=== PATIENT | female | born 1970 | race Caucasian/White ===

== ENCOUNTER → 2016-04-05 | Outpatient (REF) | payer MEDICAID, OTHER ==
[2016-04-05 14:47] LABS: FOLATE > 24.0 NG/ML; VITAMIN B12 LEVEL 551 PG/ML
[2016-04-05 14:50] LABS: ALBUMIN 4.1 GM/DL (3.2-5.2); ALBUMIN/GLOBULIN RATIO 1.14 (1.00-1.93); ALKALINE PHOSPHATASE 63 U/L (45-117); ALT/SGPT 25 U/L (12-78); ANION GAP 13 MEQ/L (8-16); AST/SGOT 19 U/L (15-37); BILIRUBIN,TOTAL 0.3 MG/DL (0.2-1.0); BLOOD UREA NITROGEN 10 MG/DL (7-18); CALCIUM LEVEL 8.9 MG/DL (8.5-10.1); CARBON DIOXIDE LEVEL 23 MEQ/L (21-32); CHLORIDE LEVEL 104 MEQ/L (98-107); CREATININE FOR GFR 0.91 MG/DL (0.55-1.02); GLOMERULAR FILTRATION RATE > 60.0 (>58); GLUCOSE, FASTING 85 MG/DL (70-105); POTASSIUM SERUM 4.6 MEQ/L (3.5-5.1); SODIUM LEVEL 140 MEQ/L (136-145); TOTAL PROTEIN 7.7 GM/DL (6.4-8.2)
[2016-04-08 08:07] LABS: VITAMIN E LEVEL 9.7 mg/L (5.3-16.8)
== END | disposition home or self-care (01) ==
LOC: M LABNEURO 14:07
PROVIDERS: ATTEND Psychiatry & Neurology Neurology
DX: G62.9 Polyneuropathy, unspecified (principal)

== ENCOUNTER → 2016-05-14 | Outpatient (CLI) | payer OTHER ==
--- NOTE | 2016-05-14 11:44 | REP ---
MR LUMBAR SPINE WITHOUT CONTRAST: HISTORY: Back pain. COMPARISON: 01/13/2016 Decreased signal intensity on T2-weighted images is present in the L3-4 and L4-5 intervertebral discs. The discs are decreased in height. These findings are consistent with disc degeneration. There is no disc bulge or herniation at the L1-2 and L2-3 levels. The nerves exit the neural foramina without compression. A diffuse disc bulge is present at the L3-4 level. There is hypertrophy of the ligamenta flava and posterior articulating facets. These findings produce minimal central canal stenosis. The L3 nerves exit the neural foramina without compression. A diffuse disc bulge and small central disc extrusion are present at the L4-5 level. There is hypertrophy of the ligamenta flava and posterior articulating facets. These findings produce moderate central canal stenosis. The L4 nerves exit the neural foramina without compression. A diffuse disc bulge is present at the L5-S1 level. This abuts the thecal sac and S1 nerves. There is hypertrophy of the posterior articulating facets. The L4 nerves exit the neural foramina without compression. The conus medullaris is normal in appearance terminating at the level of the L1-2 intervertebral disc. There is fatty infiltration of the filum terminale. Increased signal intensity on T2-weighted images is present in the endplates of the L4 and L5 vertebral bodies. This represents degenerative change. IMPRESSION: 1. Minimal central canal stenosis at the L3-4 level secondary to disc bulge, ligamentous and facet hypertrophy. 2. Moderate central canal stenosis at the L4-5 level secondary to disc bulge, disc extrusion, ligamentous and facet hypertrophy. There is no significant change compared to the previous study. 3. Diffuse disc bulge at the L5 S1 level. This abuts the thecal sac and S1 nerves. Signed by Geraldo Fuchs MD 05/14/2016 11:49 A
== END ==
LOC: M RAD 10:20
PROVIDERS: ATTEND Orthopaedic Surgery
DX: M54.5 Low back pain (principal)

== ENCOUNTER 2016-06-04 17:03 | Emergency (ER) | payer OTHER ==
[~2016-06-04] VITALS: Ht 160 cm; Wt 84.4 kg
[2016-06-04] MEDS ORDERED: AMBI10TA PO (17:20)
[2016-06-04] MEDS ORDERED: HYDR-3716 PO (17:20)
[2016-06-04] MEDS ORDERED: PAXI25TA13 PO (17:20)
[2016-06-04] MEDS ORDERED: LITH300C PO (17:20)
[2016-06-04] MEDS ORDERED: ISOVUE-370 76% 100ML VIAL (Q9967) As Ordered ONE (18:09)
--- NOTE | 2016-06-04 19:26 | REP ---
CT LUMBAR SPINE WITH CONTRAST: REASON: Rule out abscess. Patient has some pain. PRIORS: There are no priors. The examination was performed after intravenous contrast administration. Contrast utilized 100 mL Isovue-370. Mild degenerative facet joint changes are seen at L4-5 and L5-S1. Discogenic changes are seen at L4-5 with air density in the disc space consistent with vacuum phenomena from degenerative disc disease. There is L4-5 disc space narrowing. Mild anterior lipping is seen at ever level. Vertebral body height and alignment is within normal limits. Soft tissue technique throughout the examination shows fatty infiltration of the soft tissues overlying the erector spinae and multifidi musculature on the left to a greater degree than on the right and there is some air density within the soft tissues centrally and to the midline to the greatest within the subcutaneous fat. This is seen with fatty infiltration of the tissues. Midline posterior to the spinous process of L4 there is a 3.6 x 2.3 x 4.4 cm sized relatively well demarcated area of increased soft density with a small dot of air within it. This does not have well demarcated enhancing margins. IMPRESSION: There is fatty infiltration and abnormal air-density in the soft tissue as described above seen in conjunction with a focal area of increased density which may represent a developing abscess. This needs to be correlated clinically with appropriate followup. Signed by Hayden Vernon DO 06/04/2016 07:34 P
[2016-06-04 22:50] VITALS: BP 140/92
[2016-06-04] MEDS ORDERED: PERCOCET 5MG/325MG TAB PO ONE (23:00)
== END 2016-06-04 23:01 | disposition short-term general hospital (02) ==
LOC: M ED 18:45
DX: J95.812 Postprocedural air leak (principal)
CPT/HCPCS: 72132; 99282; Q9967

== ENCOUNTER → 2016-06-24 | Outpatient (CLI) | payer OTHER ==
[~2016-06-24] MED LIST: AMBI10TA PO; HYDR-3716 PO; LITH300C PO; PAXI25TA13 PO
[2016-06-24 17:44] LABS: BASO % 0.6 % (0.0-1.0); EOS # 0.2 K/mm3 (0.0-0.50); EOS % 2.8 % (0.0-3.0); LARGE UNSTAINED CELL # 0.1 K/mm3 (0.0-0.4); LARGE UNSTAINED CELL % 1.1 % (0.0-4.0); LYMPH # 1.8 K/mm3 (1.5-4.5); LYMPH % 20.1 % (24.0-44.0); MEAN CORPUSCULAR HEMOGLOBIN 31.2 pg (27.0-33.0); MEAN CORPUSCULAR HGB CONC 33.4 g/dl (32.0-36.5); MEAN CORPUSCULAR VOLUME 93.4 fl (80.0-96.0); MONO # 0.5 K/mm3 (0.0-0.8); MONO % 5.7 % (0.0-5.0); NEUTROPHILS # 5.9 K/mm3 (1.8-7.7); NEUTROPHILS % 69.7 % (36.0-66.0); PLATELET COUNT, AUTOMATED 341 k/mm3 (150-450); RED CELL DISTRIBUTION WIDTH 13.5 % (11.5-14.5); WHITE BLOOD COUNT 8.4 K/mm3 (4.0-10.0)
[2016-06-24 18:11] LABS: ERYTHROCYTE SEDIMENTATION RATE 6 mm/hr (0-20)
== END ==
LOC: M LAB 16:58
PROVIDERS: ATTEND Physician Assistant Surgical
DX: M54.5 Low back pain (principal)

== ENCOUNTER → 2016-07-16 | Outpatient (REF) | payer OTHER ==
[2016-07-16 16:20] LABS: BASO % 0.5 % (0.0-1.0); EOS # 0.2 K/mm3 (0.0-0.50); EOS % 1.7 % (0.0-3.0); LARGE UNSTAINED CELL # 0.1 K/mm3 (0.0-0.4); LARGE UNSTAINED CELL % 0.9 % (0.0-4.0); LYMPH # 2.2 K/mm3 (1.5-4.5); LYMPH % 20.3 % (24.0-44.0); MEAN CORPUSCULAR HEMOGLOBIN 31.4 pg (27.0-33.0); MEAN CORPUSCULAR HGB CONC 33.4 g/dl (32.0-36.5); MEAN CORPUSCULAR VOLUME 94.1 fl (80.0-96.0); MONO # 0.6 K/mm3 (0.0-0.8); MONO % 6.3 % (0.0-5.0); NEUTROPHILS # 7.2 K/mm3 (1.8-7.7); NEUTROPHILS % 70.3 % (36.0-66.0); PLATELET COUNT, AUTOMATED 321 k/mm3 (150-450); RED CELL DISTRIBUTION WIDTH 12.9 % (11.5-14.5); WHITE BLOOD COUNT 10.2 K/mm3 (4.0-10.0)
[2016-07-16 16:41] LABS: ALBUMIN 3.8 GM/DL (3.2-5.2); ALBUMIN/GLOBULIN RATIO 1.09 (1.00-1.93); ALKALINE PHOSPHATASE 66 U/L (45-117); ALT/SGPT 29 U/L (12-78); ANION GAP 7 MEQ/L (8-16); AST/SGOT 13 U/L (15-37); BILIRUBIN,TOTAL 0.3 MG/DL (0.2-1.0); BLOOD UREA NITROGEN 13 MG/DL (7-18); CALCIUM LEVEL 8.8 MG/DL (8.5-10.1); CARBON DIOXIDE LEVEL 24 MEQ/L (21-32); CHLORIDE LEVEL 107 MEQ/L (98-107); CREATININE FOR GFR 0.91 MG/DL (0.55-1.02); GLOMERULAR FILTRATION RATE > 60.0 (>58); GLUCOSE, FASTING 98 MG/DL (70-105); POTASSIUM SERUM 4.3 MEQ/L (3.5-5.1); SODIUM LEVEL 138 MEQ/L (136-145); TOTAL PROTEIN 7.3 GM/DL (6.4-8.2)
[2016-07-16 17:41] LABS: ERYTHROCYTE SEDIMENTATION RATE 8 mm/hr (0-20)
== END ==
LOC: M SFHCPLAZ 15:45
PROVIDERS: ATTEND Family Medicine
DX: R19.7 Diarrhea, unspecified (principal)

== ENCOUNTER → 2016-07-26 | Outpatient (REF) | payer OTHER ==
[2016-07-26 15:24] LABS: CONTROL LINE HPYORI INT CTR LINE PRESENT
== END ==
LOC: M SFHCPLAZ 08:33
PROVIDERS: ATTEND Family Medicine
DX: R10.12 Left upper quadrant pain (principal)

== ENCOUNTER → 2016-09-02 | Outpatient (REF) | payer OTHER ==
[~2016-09-02] MED LIST changes: +PANT40TA2 PO; +ZOFR4TAB3 PO
== END ==
LOC: M SFHCWAGY 11:48
PROVIDERS: ATTEND Nurse Practitioner Women's Health
DX: Z12.4 Encounter for screening for malignant neoplasm of cervix (principal)

== ENCOUNTER → 2016-09-24 | Outpatient (CLI) | payer OTHER ==
[~2016-09-24] MED LIST changes: +GASTROGRAFIN SOLUTION 30ML (Q9963) As Ordered ONE; +ISOVUE-370 76% 100ML VIAL (Q9967) As Ordered ONE
--- NOTE | 2016-09-24 17:46 | REP ---
CT abdomen and pelvis with IV contrast: 09/24/2016. Clinical history: Left lower quadrant abdominal tenderness. Evaluate for acute finding or abscess. Technique: Oral Gastrografin mixture, 10 ml in 290 ml of flavored water for two doses per our bowel contrast protocol. Bolus of 100 ml of Isovue-370 given. Scanning through the abdomen and pelvis and then both coronal and sagittal reconstructions provided. CT abdomen: Lung bases are clear. Heart not enlarged. No pericardial thickening or effusion. No definite hiatal hernia. Liver, spleen, gallbladder, pancreas, adrenal glands and kidneys were grossly unremarkable. No calcified gallstones, biliary dilatation, ascites or focal lesions. No hydronephrosis, renal, ureteral or bladder stone. The aorta is without aneurysm and no periaortic or other retroperitoneal pathologic sized lymphadenopathy. Abdominal portion of the colon shows oral contrast reaching the distal transverse colon, but no sign of colitis or diverticulitis. Appendix is seen, is retrocecal, extending superiorly from the cecal tip but ending well below the right lobe of the liver. No appendicolith or inflammatory change. Visualized small bowel loops in the upper abdomen were unremarkable. Bone window review of all CT slices shows no perforation or free air, and no abscess. Bone windows show vacuum phenomena at L4-L5 with discogenic sclerosis. No compression deformity or destructive lesion. Lower thoracic vertebral levels are unremarkable. Visualized ribs are intact. CT pelvis: Lumbosacral junction shows sacralization transverse process of L5 on the left as anatomic variation. SI joints, sacrum, iliac bones, acetabuli, hips and symphysis pubis were all grossly intact. There are a few subchondral cysts in the junction of the femoral head and neck on the left side only, representing synovial herniation pits, a benign finding. Distal left colon, sigmoid and rectum show no sign of colitis or diverticulitis. There is no pericolonic inflammatory changes. I see no ascites or adenopathy in the pelvis. The bladder is nearly completely empty. Wall thickness, therefore, difficult to electric meter setter. I see no mass or stone. Uterus absent and the vaginal cuff intact. Pelvic phleboliths are present, but no adnexal mass. No ventral or inguinal hernia nor pathologic sized inguinal adenopathy. Intrinsic and extrinsic pelvic hip, buttock and proximal thigh musculature as well as lower abdominal musculature all unremarkable. Impression: 1. Status post hysterectomy with no pelvic mass, adenopathy, ascites, perforation or free air. There is no abscess. There is no colitis, diverticulitis or other acute finding. Small bowel loops intact. 2. Retrocecal appendix which is normal. The cecum, right colon through the transverse and left colon all unremarkable. Small bowel loops intact. 3. The upper abdominal organs, gallbladder and stomach were all intact. Signed by Earle Ndiaye MD 09/24/2016 10:25 P
== END ==
LOC: M RAD 13:45
PROVIDERS: ATTEND Internal Medicine Gastroenterology
DX: R10.814 Left lower quadrant abdominal tenderness (principal)

== ENCOUNTER 2016-09-30 06:46 | Outpatient (CLI) | payer OTHER ==
[~2016-09-30] VITALS: Ht 157.5 cm; Wt 82.6 kg
[~2016-09-30 06:46] MED LIST changes: -GASTROGRAFIN SOLUTION 30ML (Q9963) As Ordered ONE; -ISOVUE-370 76% 100ML VIAL (Q9967) As Ordered ONE; -ZOFR4TAB3 PO
[2016-09-30] MEDS ORDERED: PROPOFOL 200 MG/20 ML VIAL As Ordered ONE (07:19)
[2016-09-30] MEDS ORDERED: NS 1,000 ML IV SCH (07:45)
--- NOTE | 2016-09-30 08:54 | ROOR ---
Patient Name: Ceci Brewster Procedure Date: 09/30/2016 8:34 AM Date of : 1970 Age: 46 Room: [facility] Gender: Female Note Status: Finalized Procedure: Colonoscopy Indications: Chronic diarrhea Providers: Suresh Koenig MD Referring MD: Geraldo Donaldson DO Requesting Provider: Medicines: Monitored Anesthesia Care Complications: No immediate complications. Procedure: Pre-Anesthesia Assessment: - Prior to the procedure, a History and Physical was performed, and patient medications and allergies were reviewed. The patient is competent. The risks and benefits of the procedure and the sedation options and risks were discussed with the patient. All questions were answered and informed consent was obtained. Patient identification and proposed procedure were verified by the physician, the nurse and the railroad emergency services manager in the procedure room. Mental Status Examination: alert and oriented. Airway Examination: normal oropharyngeal airway and neck mobility. Respiratory Examination: clear to auscultation. CV Examination: normal. Prophylactic Antibiotics: The patient does not require prophylactic antibiotics. Prior Anticoagulants: The patient has taken no previous anticoagulant or antiplatelet agents. ASA Grade Assessment: II - A patient with mild systemic disease. After reviewing the risks and benefits, the patient was deemed in satisfactory condition to undergo the procedure. The anesthesia plan was to use monitored anesthesia care (MAC). Immediately prior to administration of medications, the patient was re-assessed for adequacy to receive sedatives. The heart rate, respiratory rate, oxygen saturations, blood pressure, adequacy of pulmonary ventilation, and response to care were monitored throughout the procedure. The physical status of the patient was re-assessed after the procedure. The Colonoscope was introduced through the anus and advanced to the terminal ileum, with identification of the appendiceal orifice and IC valve. The colonoscopy was performed without difficulty. The patient tolerated the procedure well. The quality of the bowel preparation was good. The terminal ileum, ileocecal valve, appendiceal orifice, and rectum were photographed. Scope insertion time was 6 minutes. Scope withdrawal time was 20 minutes. The total duration of the procedure was 26 minutes. Findings: The perianal and digital rectal examinations were normal. A 3 mm polyp was found in the ascending colon. The polyp was sessile. The polyp was removed with a cold biopsy forceps. Resection and retrieval were complete. Verification of patient identification for the specimen was done by the physician, nurse and calibration technician using the patient's name, date and medical record number. Estimated blood loss was minimal. A 3 mm polyp was found in the transverse colon. The polyp was sessile. The polyp was removed with a cold biopsy forceps. Resection and retrieval were complete. A 3 mm polyp was found in the sigmoid colon. The polyp was sessile. The polyp was removed with a cold biopsy forceps. Resection and retrieval were complete. Anal papilla(e) were hypertrophied. Biopsies were taken with a cold forceps for histology. No additional abnormalities were found on retroflexion. Normal mucosa was found in the entire colon. Biopsies for histology were taken with a cold forceps from the ascending colon, transverse colon, descending colon, sigmoid colon and rectum for evaluation of microscopic colitis. Impression: - One 3 mm polyp in the ascending colon, removed with a cold biopsy forceps. Resected and retrieved. - One 3 mm polyp in the transverse colon, removed with a cold biopsy forceps. Resected and retrieved. - One 3 mm polyp in the sigmoid colon, removed with a cold biopsy forceps. Resected and retrieved. - Anal papilla(e) were hypertrophied. Biopsied. - Normal mucosa in the entire examined colon. Biopsied. Recommendation: - Patient has a contact number available for emergencies. The signs and symptoms of potential delayed complications were discussed with the patient. Return to normal activities tomorrow. Written discharge instructions were provided to the patient. - Resume previous diet. - Continue present medications. - Await pathology results. - Repeat colonoscopy in 3 - 5 years for surveillance based on pathology results. - Return to GI clinic as previously scheduled. Suresh Koenig MD Suresh Koenig MD 09/30/2016 8:54:48 AM This report has been signed electronically. Number of Addenda: 0 Note Initiated On: 09/30/2016 8:34 AM Estimated Blood Loss: Estimated blood loss was minimal.
[2016-09-30 09:10] VITALS: BP 109/76
== END 2016-09-30 09:18 | disposition home or self-care (01) ==
LOC: M OPP 06:46
PROVIDERS: ATTEND Internal Medicine Gastroenterology
DX: K63.5 Polyp of colon (principal); D12.3 Benign neoplasm of transverse colon; K62.89 Other specified diseases of anus and rectum; K21.9 Gastro-esophageal reflux disease without esophagitis; G89.29 Other chronic pain; M54.9 Dorsalgia, unspecified; F41.9 Anxiety disorder, unspecified; F33.9 Major depressive disorder, recurrent, unspecified; F17.210 Nicotine dependence, cigarettes, uncomplicated; Z79.899 Other long term (current) drug therapy

== ENCOUNTER 2016-10-02 08:57 | Emergency (ER) | payer OTHER ==
[~2016-10-02] VITALS: Ht 160 cm; Wt 85.2 kg
[2016-10-02] MEDS ORDERED: ZOFR4TAB3 PO (09:10)
[2016-10-02] MEDS ORDERED: PROMETHAZINE INJ 25 MG/ML VIAL (J2550) IM ONE (09:45)
[2016-10-02 10:23] LABS: BASO % 0.7 % (0.0-1.0); EOS # 0.1 K/mm3 (0.0-0.50); EOS % 1.9 % (0.0-3.0); LARGE UNSTAINED CELL # 0.1 K/mm3 (0.0-0.4); LARGE UNSTAINED CELL % 0.9 % (0.0-4.0); LYMPH # 1.7 K/mm3 (1.5-4.5); LYMPH % 22.2 % (24.0-44.0); MEAN CORPUSCULAR HEMOGLOBIN 30.4 pg (27.0-33.0); MEAN CORPUSCULAR HGB CONC 32.5 g/dl (32.0-36.5); MEAN CORPUSCULAR VOLUME 93.5 fl (80.0-96.0); MONO # 0.3 K/mm3 (0.0-0.8); MONO % 3.8 % (0.0-5.0); NEUTROPHILS # 5.1 K/mm3 (1.8-7.7); NEUTROPHILS % 70.6 % (36.0-66.0); PLATELET COUNT, AUTOMATED 315 k/mm3 (150-450); RED CELL DISTRIBUTION WIDTH 12.5 % (11.5-14.5); WHITE BLOOD COUNT 7.2 K/mm3 (4.0-10.0)
[2016-10-02 10:36] LABS: ALBUMIN/GLOBULIN RATIO 1.21 (1.00-1.93); ALKALINE PHOSPHATASE 59 U/L (45-117); ALT/SGPT 24 U/L (12-78); ANION GAP 8 MEQ/L (8-16); AST/SGOT 21 U/L (15-37); BILIRUBIN,DIRECT 0.1 MG/DL (0.0-0.2); BILIRUBIN,TOTAL 0.5 MG/DL (0.2-1.0); BLOOD UREA NITROGEN 6 MG/DL (7-18); CARBON DIOXIDE LEVEL 23 MEQ/L (21-32); CHLORIDE LEVEL 111 MEQ/L (98-107); CREATININE FOR GFR 0.87 MG/DL (0.55-1.02); GLOMERULAR FILTRATION RATE > 60.0 (>58); GLUCOSE, FASTING 89 MG/DL (70-105); POTASSIUM SERUM 4.4 MEQ/L (3.5-5.1); SODIUM LEVEL 142 MEQ/L (136-145); TOTAL PROTEIN 7.3 GM/DL (6.4-8.2)
[2016-10-02 10:39] LABS: LITHIUM LEVEL 0.53 MEQ/L (0.60-1.20)
[2016-10-02 10:50] LABS: ERYTHROCYTE SEDIMENTATION RATE 5 mm/hr (0-20)
[2016-10-02 11:26] VITALS: BP 125/90
== END 2016-10-02 11:34 | disposition home or self-care (01) ==
LOC: M ED 08:57
DX: R51 Headache (principal); G89.29 Other chronic pain; M54.9 Dorsalgia, unspecified; R11.0 Nausea; Z72.0 Tobacco use

== ENCOUNTER → 2016-10-27 | Outpatient (REF) | payer OTHER ==
[~2016-10-27] MED LIST changes: +ZOFR4TAB3 PO
[2016-10-27 14:07] LABS: INR 0.84
== END ==
LOC: M LABDRAW1 10:37
PROVIDERS: ATTEND Physical Medicine & Rehabilitation
DX: Z01.812 Encounter for preprocedural laboratory examination (principal); Z79.899 Other long term (current) drug therapy

== ENCOUNTER 2016-11-22 10:00 | Outpatient (CLI) | payer OTHER ==
[~2016-11-22] VITALS: Ht 160 cm; Wt 84.4 kg
[2016-11-22] MEDS ORDERED: NS 1,000 ML IV ONE (10:15)
[2016-11-22] MEDS ORDERED: LIDOCAINE 2% INJ 100 MG/5 ML SDV (FOR ANES.) As Ordered ONE (11:55)
[2016-11-22] MEDS ORDERED: PROPOFOL 200 MG/20 ML VIAL As Ordered ONE ×2 (11:56→12:11)
--- NOTE | 2016-11-22 12:12 | ROOR ---
Patient Name: Ceci Brewster Procedure Date: 11/22/2016 11:47 AM Date of : 1970 Age: 46 Room: [facility] Gender: Female Note Status: Finalized Procedure: Upper GI endoscopy Indications: Epigastric abdominal pain, Suspected celiac disease Providers: Suresh Koenig MD Referring MD: Geraldo Donaldson DO Requesting Provider: Medicines: Monitored Anesthesia Care Complications: No immediate complications. Procedure: Pre-Anesthesia Assessment: - Prior to the procedure, a History and Physical was performed, and patient medications and allergies were reviewed. The patient is competent. The risks and benefits of the procedure and the sedation options and risks were discussed with the patient. All questions were answered and informed consent was obtained. Patient identification and proposed procedure were verified by the physician, the nurse and the special systems technician in the procedure room. Mental Status Examination: alert and oriented. Airway Examination: normal oropharyngeal airway and neck mobility. Respiratory Examination: clear to auscultation. CV Examination: normal. Prophylactic Antibiotics: The patient does not require prophylactic antibiotics. Prior Anticoagulants: The patient has taken no previous anticoagulant or antiplatelet agents. ASA Grade Assessment: II - A patient with mild systemic disease. After reviewing the risks and benefits, the patient was deemed in satisfactory condition to undergo the procedure. The anesthesia plan was to use monitored anesthesia care (MAC). Immediately prior to administration of medications, the patient was re-assessed for adequacy to receive sedatives. The heart rate, respiratory rate, oxygen saturations, blood pressure, adequacy of pulmonary ventilation, and response to care were monitored throughout the procedure. The physical status of the patient was re-assessed after the procedure. The Endoscope was introduced through the mouth, and advanced to the second part of duodenum. The upper GI endoscopy was accomplished without difficulty. The patient tolerated the procedure well. Findings: A small hiatal hernia was present. LA Grade A (one or more mucosal breaks less than 5 mm, not extending between tops of 2 mucosal folds) esophagitis with no bleeding was found at the gastroesophageal junction. Biopsies were taken with a cold forceps for histology. Verification of patient identification for the specimen was done by the physician and nurse using the patient's name, date and medical record number. Estimated blood loss was minimal. Localized moderately erythematous mucosa without bleeding was found in the gastric antrum and in the prepyloric region of the stomach. Biopsies were taken with a cold forceps for Helicobacter pylori testing. The duodenal bulb and second portion of the duodenum were normal. Biopsies for histology were taken with a cold forceps for evaluation of celiac disease. Impression: - Small hiatal hernia. - LA Grade A reflux esophagitis. Biopsied. - Erythematous mucosa in the antrum and prepyloric region of the stomach. Biopsied. - Normal duodenal bulb and second portion of the duodenum. Biopsied. Recommendation: - Patient has a contact number available for emergencies. The signs and symptoms of potential delayed complications were discussed with the patient. Return to normal activities tomorrow. Written discharge instructions were provided to the patient. - Resume previous diet. - Continue present medications. - Await pathology results. - Return to GI clinic as previously scheduled on 12/02/2016 at 11:15 AM. - Return to primary care physician. Suresh Koenig MD Suresh Koenig MD 11/22/2016 12:11:57 PM This report has been signed electronically. Number of Addenda: 0 Note Initiated On: 11/22/2016 11:47 AM Estimated Blood Loss: Estimated blood loss was minimal.
[2016-11-22 12:20] VITALS: BP 106/75
== END 2016-11-22 12:33 | disposition home or self-care (01) ==
LOC: M OPP 10:00
PROVIDERS: ATTEND Internal Medicine Gastroenterology
DX: R10.13 Epigastric pain (principal); K44.9 Diaphragmatic hernia without obstruction or gangrene; K21.0 Gastro-esophageal reflux disease with esophagitis; K31.89 Other diseases of stomach and duodenum; K59.00 Constipation, unspecified; R12 Heartburn; R14.0 Abdominal distension (gaseous); F41.9 Anxiety disorder, unspecified; F32.9 Major depressive disorder, single episode, unspecified; G47.8 Other sleep disorders; M51.9 Unspecified thoracic, thoracolumbar and lumbosacral intervertebral disc disorder; G97.0 Cerebrospinal fluid leak from spinal puncture; Z87.891 Personal history of nicotine dependence; Z79.899 Other long term (current) drug therapy; Z80.9 Family history of malignant neoplasm, unspecified

== ENCOUNTER → 2017-02-22 | Outpatient (CLI) | payer OTHER ==
[2017-02-22 15:02] LABS: APPEARANCE, URINE CLEAR (CLEAR); BACTERIA, URINE AUTO 1+ (NEGATIVE); BILIRUBIN, URINE AUTO NEGATIVE (NEGATIVE); BLOOD, URINE BLOOD 1+ (NEGATIVE); COLOR, URINE YELLOW (YELLOW); GLUCOSE, URINE (UA) AUTO NEGATIVE (NEGATIVE); KETONE, URINE AUTO NEGATIVE (NEGATIVE); LEUKOCYTE ESTERASE, URINE AUTO NEGATIVE (NEGATIVE); MUCUS, URINE SMALL (NEGATIVE); NITRITE, URINE AUTO NEGATIVE (NEGATIVE); PROTEIN, URINE AUTO NEGATIVE (NEGATIVE); RBC, URINE AUTO 3 /HPF (0-3); SPECIFIC GRAVITY URINE AUTO 1.014 (1.002-1.035); SQUAMOUS EPITHELIAL CELL UR AU 1 /HPF (0-6); UROBILINOGEN, URINE AUTO 0.2 mg/dL (0.0-2.0); WBC, URINE AUTO 1 /HPF (0-3)
[2017-02-22 15:13] LABS: HEMATOCRIT 40.8 % (36.0-47.0); HEMOGLOBIN 13.3 g/dl (12.0-16.0); MEAN CORPUSCULAR HEMOGLOBIN 29.8 pg (27.0-33.0); MEAN CORPUSCULAR HGB CONC 32.6 g/dl (32.0-36.5); MEAN CORPUSCULAR VOLUME 91.5 fl (80.0-96.0); PLATELET COUNT, AUTOMATED 277 10^3/uL (150-450); RED BLOOD COUNT 4.46 10^6/uL (4.00-5.40); RED CELL DISTRIBUTION WIDTH 12.9 % (11.5-14.5); WHITE BLOOD COUNT 6.5 10^3/uL (4.0-10.0)
[2017-02-22 15:24] LABS: ALBUMIN 3.9 GM/DL (3.2-5.2); ALKALINE PHOSPHATASE 58 U/L (45-117); ALT/SGPT 20 U/L (12-78); ANION GAP 6 MEQ/L (8-16); AST/SGOT 16 U/L (7-37); BILIRUBIN,TOTAL 0.2 MG/DL (0.2-1.0); BLOOD UREA NITROGEN 10 MG/DL (7-18); CALCIUM LEVEL 8.6 MG/DL (8.5-10.1); CARBON DIOXIDE LEVEL 30 MEQ/L (21-32); CHLORIDE LEVEL 108 MEQ/L (98-107); CREATININE FOR GFR 0.82 MG/DL (0.55-1.02); GLOMERULAR FILTRATION RATE > 60.0 (>58); GLUCOSE, FASTING 81 MG/DL (70-105); POTASSIUM SERUM 4.6 MEQ/L (3.5-5.1); SODIUM LEVEL 144 MEQ/L (136-145); TOTAL PROTEIN 6.9 GM/DL (6.4-8.2)
[2017-02-22 15:46] LABS: LITHIUM LEVEL 0.32 MEQ/L (0.60-1.20)
== END ==
LOC: M LAB 14:03
DX: Z51.81 Encounter for therapeutic drug level monitoring (principal); Z79.899 Other long term (current) drug therapy
CPT/HCPCS: 80178

== ENCOUNTER → 2017-09-15 | Outpatient (CLI) | payer MEDICARE, OTHER | LOC: M WHC 14:46 | DX: Z01.419 Encounter for gynecological examination (general) (routine) without abnormal findings (principal); Z12.31 Encounter for screening mammogram for malignant neoplasm of breast (principal); Z92.89 Personal history of other medical treatment | CPT/HCPCS: 77067 ==

== ENCOUNTER → 2017-10-04 | Outpatient (REF) | payer MEDICARE, OTHER ==
[2017-10-04 11:40] LABS: PLATELET COUNT, AUTOMATED 265 10^3/uL (150-450)
[2017-10-04 11:53] LABS: INR 0.95; PROTHROMBIN TIME 12.8 SECONDS (12.1-14.4)
[2017-10-04 11:54] LABS: PARTIAL THROMBOPLASTIN TIME 26.8 SECONDS (25.4-37.6)
[2017-10-04 12:03] LABS: COLLAGEN EPINEPHRINE 97 SECONDS (74-162)
== END ==
LOC: M LAB REF 11:31
DX: Z01.818 Encounter for other preprocedural examination (principal); M51.26 Other intervertebral disc displacement, lumbar region; Z79.899 Other long term (current) drug therapy
CPT/HCPCS: 85049

== ENCOUNTER → 2018-05-12 | Outpatient (CLI) | payer OTHER ==
[~2018-05-12] MED LIST changes: +ENDO7.5T11 PO; +IBUP80TA PO; +ISOVUE-M 300 61% 15ML VIAL (Q9967) As Ordered ONE; +LIDOCAINE 1% MDV 20ML VIAL As Ordered ONE; +ONDA8TAB8 PO; +ONDANSETRON 4 MG ORAL DISINTEGRATING TAB (Q0162 PER 1MG) As Ordered ONE; -PANT40TA2 PO; +PANT40TA3 PO; +ZOFR4TAB14 PO; -ZOFR4TAB3 PO
--- NOTE | 2018-05-12 11:11 | REP ---
CT LUMBAR SPINE WITHOUT CONTRAST: HISTORY: Arachnoiditis. COMPARISON: MR 09/14/2017. CT of the lumbar spine was performed status post myelography. There is no disc bulge or herniation at the L1-2 and L2-3 levels. The nerves exit the neural foramina without compression. A diffuse disc bulge is present at the L3-4 level. There is hypertrophy of the ligamenta flava and posterior articulating facets. These findings produce minimal central canal stenosis. The L3 nerves exit the neural foramina without compression. A diffuse disc bulge with associated osteophyte formation is present at the L4-5 level. There is minimal compression of the thecal sac. There is hypertrophy of the posterior articulating facets. There is compression of the L4 nerves in the neural foramina and right L4 nerve in the right L4 lateral recess. A right laminectomy defect is present. A diffuse disc bulge is present at the L5-S1 level. This abuts the thecal sac. There is hypertrophy of the posterior articulating facets. The L5 nerves exit the neural foramina without compression. There is partial sacralization of the L5 vertebral body. The conus medullaris is normal in appearance terminating at the level of the L1-2 intervertebral disc. There is clumping of several nerves of the cauda equina at the L2-3 level consistent with arachnoiditis. The L3-4 and L4-5 intervertebral discs are decreased in height. Vacuum phenomenon is present at the L4-5 level. This represents ____ disc degeneration. There is sclerosis of the endplates of the L4 and L5 vertebral bodies. IMPRESSION: 1. Minimal central canal stenosis at the L3-4 level secondary to disc bulge, ligamentous and facet hypertrophy. 2. Diffuse disc bulge with associated osteophyte formation at the L4-5 level with minimal thecal sac compression. There is compression of the L4 nerves in the neural foramina and right L4 nerve in the right L4 lateral recess. The L4 nerve compression is a new finding. 3. Diffuse disc bulge at the L5-S1 level. This abuts the thecal sac. 4. 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 Electronically Signed by Geraldo Fuchs MD 05/12/2018 11:21 A
--- NOTE | 2018-05-12 16:38 | REP ---
LUMBAR MYELOGRAM The procedure was performed under the personal supervision of Dr. Huitron. The images were reviewed with Dr. Huitron. The risks and benefits of the procedure were explained to the patient and informed consent was obtained. The L3-4 interspace was localized using fluoroscopic guidance. The skin was prepped and draped in a sterile fashion. 1% lidocaine was used as a local anesthetic. Using fluoroscopic guidance a 22-gauge spinal needle was inserted and advanced into the thecal sac. 10 ml of Isovue -M 300 was injected. Images obtained after injection demonstrate degenerative narrowing at the L4-5 and L3-4 discs. There is minimal indentation of the ventral margin of the thecal sac on lateral projection and L3-4. There is evidence of facet hypertrophy at L4-5 bilaterally. Otherwise negative exam. The patient was taken to CT scan for postprocedural imaging. The patient tolerated the procedure well and there were no immediate complications. After the appropriate amount of monitored convalescence the patient was discharged from the department. 0.4 minutes of fluoroscopy time was utilized for this procedure. Reviewed by MANNIE Hood 05/12/2018 03:32 P Electronically Signed by Paul Huitron MD 05/12/2018 04:28 P
== END ==
LOC: M RADPRO 08:16
PROVIDERS: ATTEND Physical Medicine & Rehabilitation
DX: M51.37 Other intervertebral disc degeneration, lumbosacral region (principal); M47.817 Spondylosis without myelopathy or radiculopathy, lumbosacral region
CPT/HCPCS: 62304; 72131; Q0162; Q9967

== ENCOUNTER 2018-05-13 12:18 | Emergency (ER) | payer OTHER ==
[~2018-05-13] VITALS: Ht 157.5 cm; Wt 78.7 kg
[~2018-05-13 12:18] MED LIST changes: -ENDO7.5T11 PO; -IBUP80TA PO; -ISOVUE-M 300 61% 15ML VIAL (Q9967) As Ordered ONE; -LIDOCAINE 1% MDV 20ML VIAL As Ordered ONE; -ONDA8TAB8 PO; -ONDANSETRON 4 MG ORAL DISINTEGRATING TAB (Q0162 PER 1MG) As Ordered ONE
[2018-05-13] MEDS ORDERED: LIDOCAINE 5% (LIDODERM) PATCH TD ONE (13:30)
[2018-05-13] MEDS ORDERED: IBUPROFEN 800 MG TAB PO ONE (13:30)
[2018-05-13] MEDS ORDERED: ACETAMINOPHEN 500 MG TAB PO ONE (15:30)
[2018-05-13] MEDS ORDERED: ONDANSETRON 4 MG ORAL DISINTEGRATING TAB (Q0162 PER 1MG) PO ONE (15:30)
[2018-05-13] MEDS ORDERED: ONDANSETRON 4MG/2ML VIAL (J2405) IV ONE (17:15)
[2018-05-13] MEDS ORDERED: NS 1,000 ML IV ONE (17:15)
[2018-05-13] MEDS: MORPHINE 4 MG/ML 1ML VIAL/SYRINGE (J2270) IV PRN ×2 (17:25→18:35)
[2018-05-13] MEDS ORDERED: ENDO7.5T11 PO (19:32)
[2018-05-13] MEDS ORDERED: IBUP80TA PO (19:32)
[2018-05-13] MEDS ORDERED: ONDA8TAB8 PO (19:32)
[2018-05-13 19:38] VITALS: BP 148/91
[2018-05-13] MEDS ORDERED: PERCOCET 5MG/325MG TAB PO ONE (19:45)
--- NOTE | 2018-05-14 08:22 | REP ---
MRI LUMBAR SPINE: TECHNIQUE: Multiple sequences obtained in the axial and sagittal planes. Comparison 09/14/2017. Vertebral bodies are again normal in height and are well aligned with normal lumbar lordosis. There is again moderate disc space narrowing at L4-5 with degenerative signal along the adjacent vertebral body endplates. Conus is unremarkable. Cauda equina appear unremarkable and unchanged. There is no acute hematoma status post lumbar myelogram one day ago. There is no significant disc bulging or herniation at the L1-2 or L2-3 levels, with no spinal stenosis or neural foraminal narrowing. There is mild diffuse disc bulging at L3-4, L4-5, and L5-S1 once again. At the L3-4 level there is mild hypertrophy of ligamentum flavum and posterior facet joints causing minimal spinal stenosis, unchanged. Similar findings are seen at L4-5 with a right hemilaminectomy defect again seen. Tiny fatty infiltration of the filum terminale is again noted. IMPRESSION: No change since prior study of 09/14/2017. Mild disc bulging at L3-4, L4-5, and L5-S1 is stable. Minimal spinal stenosis at L3-4 and L4-5 is unchanged. No acute hematoma or other acute finding following yesterday's myelogram. Electronically Signed by Mike Almaguer MD 05/14/2018 10:25 A
== END 2018-05-13 19:53 | disposition home or self-care (01) ==
LOC: M ED 12:18
DX: G03.9 Meningitis, unspecified (principal); M54.9 Dorsalgia, unspecified; M79.605 Pain in left leg; F41.9 Anxiety disorder, unspecified; G89.29 Other chronic pain; Z79.899 Other long term (current) drug therapy; F17.210 Nicotine dependence, cigarettes, uncomplicated
CPT/HCPCS: 72148; 96361; 96374; 96375; 96376; 99284; J2270; J2405; Q0162